=== PATIENT | female | born 1985 | race Caucasian/White ===

== ENCOUNTER 2016-06-15 18:48 | Observation (INO) | payer SELFPAY ==
[~2016-06-15 18:48] MED LIST: ADVAIR; ALBUTEROL; ALBUTEROL SULF8.5 G1 IH; ALBUTEROL17 GM; ALBUTEROL17 GM INH; AMOXICILLIN500 M PO; AMOXICILLIN875 MG PO; ASPIRIN81 MG PO; AUGMENTIN 875-1 EAC2 PO; BYSTOLIC5 MG PO; CLARITIN10 MG; DARVOCET-N 1001 TAB; DOXYCYCLINE HY100 MG PO; GUIATUSS AC SY120 ML PO; IBUPROFEN200 MG; IBUPROFEN800 MG PO; IRON SUPPLEMEN325 MG PO; IRON325 MG PO; K-DUR20 ME1 PO; LASIX20 MG PO; LORTAB 5/500 TA1 TAB PO; MOTRIN800 MG PO; NO HOME MEDICATION XX; NORCO 5-325 TA1 EACH PO; NORCO 5/325 TAB1 TAB PO; NORCO 7.5-3251 EACH PO; PERCOCET 5/3251 TAB PO; PREDNISONE10 MG PO; PRENATAL 1 PLUS1 TAB PO; PRENATAL VITAM1 EAC9 PO; PRENATAL1 EACH PO; PRENATAL1 TAB; SEROQUEL XR200 MG PO; SKELAXIN400 MG PO; TRIPNIP TOP; TYLENOL TA500 MG/TA1 PO; TYLENOL500 MG; VISTARIL50 MG; VITAMIN C; ZITHROMAX250 MG PO; ZOFRAN ODT4 MG PO; ZOFRAN4 MG; ZOFRAN4 MG PO; blood pressure pill
[2016-06-15 22:01] LABS: BASO % 0.3 % (0-2); EOS % 2.9 % (0-7); EOSINOPHIL ABSOLUTE COUNT 0.2 tho/cmm (0.0-0.7); HCT-HEMATOCRIT 37.4 % (34.0-49.0); IMMATURE GRANULOCYTES ABSOLUTE 0.01 tho/cmm (0-0.03); IMMATURE GRANULOCYTES PERCENT 0.1 % (0-0.3); LYMPH % 27.5 % (20-45); MCH (MEAN CORPUSCULAR HGB) 28.6 pg (28.0-32.0); MCHC MEAN CORPUSCULAR HGB CONC 32.1 % (32.0-36.0); MEAN PLATELET VOLUME 9.1 cmc (9.4-12.4); MONO % 9.2 % (0-12); MONOCYTE ABSOLUTE COUNT 0.7 tho/cmm (0.0-1.2); NEUTROPHIL ABSOLUTE COUNT 4.4 tho/cmm (1.6-8.0); NEUTROPHIL-AUTOMATED 4.4 tho/cmm (1.6-8.0); PLATELET COUNT 250 tho/cmm (150-450); RED CELL DISTRIBUTION WIDTH 14.7 % (12.4-16.4); WHITE BLOOD COUNT 7.3 tho/cmm (4.0-10.0)
[2016-06-15 22:05] LABS: INR 0.9 INR (0.9-1.1); PROTHROMBIN TIME 10.6 SECONDS (9.0-13.6)
[2016-06-15 22:16] LABS: PREGNANCY-SERUM NEGATIVE (NEGATIVE)
[2016-06-15 22:18] LABS: ALB/GLOB RATIO 0.7 (0.8-2.0); ALBUMIN 3.3 g/dl (3.5-5.0); ALKALINE PHOSPHATASE 83 U/L (33-138); ALT/SGPT 31 U/L (12-78); ANION GAP 7 mmol/L (0-20); AST/SGOT 33 U/L (10-40); BILIRUBIN,DIRECT <0.1 mg/dl (0.0-0.3); BILIRUBIN,INDIRECT 0.1 mg/dL (0.0-1.0); BILIRUBIN,TOTAL 0.2 mg/dl (0-1.5); BLOOD UREA NITROGEN 13 mg/dl (6-24); C-REACTIVE PROTEIN 0.6 mg/dl (0-0.9); CALCIUM 8.1 mg/dl (8.5-10.5); CARBON DIOXIDE-VENOUS 31 mmol/L (22-32); CHLORIDE 105 mmol/l (96-110); GLUCOSE 99 mg/dL (70-110); POTASSIUM 3.9 mmol/L (3.7-5.1); SODIUM 139 mmol/L (135-145); eGFR VALUE FOR BLACK >90 mL/Min
[2016-06-15 22:21] LABS: ESR-ERYTHROCYTE SED RATE 14 mm/hr (0-20)
[2016-06-15 22:23] LABS: TSH-THYROID STIMULATING HORM. 4.15 uIU/ml (0.40-3.80)
[2016-06-15 22:32] LABS: PROCALCITONIN <0.05 ng/ml (0.05-0.09)
[2016-06-17] MEDS ORDERED: HYDROCODON-ACE1 EA16 PO ×2 (14:41→14:46)
[2016-06-17] MEDS ORDERED: TYLENOL325 M2 PO (14:47)
[2016-06-17] MEDS ORDERED: PREDNISONE10 M1 PO (14:48)
[2016-06-17] MEDS ORDERED: PROTONIX40 M2 PO (14:48)
[2016-06-25] MEDS ORDERED: VENTOLIN HFA18 G2 PO (12:09)
[2016-06-25] MEDS ORDERED: IBUPROFEN200 M2 PO (12:10)
== END 2016-06-17 15:40 ==
LOC: EDMED 18:48 → EMR2 21:52 → CAR1 22:07
PROVIDERS: ADMIT Internal Medicine
DX: R53.1 Weakness (principal); M79.604 Pain in right leg; F17.210 Nicotine dependence, cigarettes, uncomplicated; R20.9 Unspecified disturbances of skin sensation; G43.909 Migraine, unspecified, not intractable, without status migrainosus; F31.9 Bipolar disorder, unspecified; Z85.72 Personal history of non-Hodgkin lymphomas; Z95.2 Presence of prosthetic heart valve; Z98.890 Other specified postprocedural states; D64.9 Anemia, unspecified; Z79.899 Other long term (current) drug therapy
CPT/HCPCS: A9577; G0378; J2930; J7030

== ENCOUNTER 2016-06-25 12:49 | Emergency (ER) | payer SELFPAY ==
[2016-06-25 12:42] LABS: URINE APPEARANCE CLOUDY; URINE BILIRUBIN NEGATIVE (NEG); URINE BLOOD LARGE (NEG); URINE COLOR YELLOW; URINE GLUCOSE (UA) NEGATIVE (NEG); URINE KETONE NEGATIVE (NEG); URINE LEUKOCYTE ESTERASE POSITIVE (NEG); URINE NITRITE POSITIVE (NEG); URINE PROTEIN SMALL (NEG)
[2016-06-25 12:47] LABS: BASO % 0.4 % (0-2); BASO ABSOLUTE COUNT 0.1 tho/cmm (0.0-0.2); EOS % 0.2 % (0-7); HCT-HEMATOCRIT 41.2 % (34.0-49.0); HGB-HEMOGLOBIN 13.1 gm/dl (12.0-15.5); LYMPH % 8.5 % (20-45); MCH (MEAN CORPUSCULAR HGB) 28.9 pg (28.0-32.0); MCHC MEAN CORPUSCULAR HGB CONC 31.8 % (32.0-36.0); MCV (MEAN CELL VOLUME) 90.7 fl (82.0-96.0); MEAN PLATELET VOLUME 9.7 cmc (9.4-12.4); MONO % 8.8 % (0-12); MONOCYTE ABSOLUTE COUNT 1.1 tho/cmm (0.0-1.2); NEUTROPHILS % 82.1 % (40-80); PLATELET COUNT 266 tho/cmm (150-450); RED BLOOD COUNT 4.54 mil/cmm (4.00-5.20); WHITE BLOOD COUNT 12.2 tho/cmm (4.0-10.0)
[~2016-06-25 12:49] MED LIST changes: +HYDROCODON-ACE1 EA16 PO; +IBUPROFEN200 M2 PO; +PREDNISONE10 M1 PO; +PROTONIX40 M2 PO; +TYLENOL325 M2 PO; +VENTOLIN HFA18 G2 PO
[2016-06-25 12:51] LABS: URINE WBC 40-50 /[HPF] (0-5)
[2016-06-25 12:52] LABS: URINE BACTERIA 4+
[2016-06-25 13:00] LABS: ALB/GLOB RATIO 0.8 (0.8-2.0); ALBUMIN 3.6 g/dl (3.5-5.0); ALCOHOL (ETOH) <10 mg/dl (<10); ALKALINE PHOSPHATASE 93 U/L (33-138); ALT/SGPT 27 U/L (12-78); ANION GAP 12 mmol/L (0-20); AST/SGOT 72 U/L (10-40); BILIRUBIN,TOTAL 0.2 mg/dl (0-1.5); BLOOD UREA NITROGEN 14 mg/dl (6-24); CALCIUM 8.3 mg/dl (8.5-10.5); CARBON DIOXIDE-VENOUS 27 mmol/L (22-32); CHLORIDE 106 mmol/l (96-110); GLUCOSE 167 mg/dL (70-110); POTASSIUM 4.7 mmol/L (3.7-5.1); SODIUM 140 mmol/L (135-145); eGFR VALUE FOR BLACK 69 mL/Min
[2016-06-25 13:15] LABS: PREGNANCY-SERUM NEGATIVE (NEGATIVE)
[2016-06-25 13:16] LABS: C-REACTIVE PROTEIN <0.3 mg/dl (0-0.9)
[2016-06-25 13:35] LABS: ESR-ERYTHROCYTE SED RATE 2 mm/hr (0-20)
[2016-06-25] MEDS ORDERED: ZYRTEC10 M7 PO (14:45)
[2016-06-25] MEDS ORDERED: PREDNISONE50 M1 PO (14:45)
[2016-06-25] MEDS ORDERED: NORCO 5-325 TA1 EACH PO (15:05)
== END 2016-06-25 15:16 ==
LOC: EDMED 12:49
PROVIDERS: Emergency Medicine
DX: R21 Rash and other nonspecific skin eruption (principal); R11.10 Vomiting, unspecified; R19.7 Diarrhea, unspecified; R53.1 Weakness; R20.0 Anesthesia of skin; F31.9 Bipolar disorder, unspecified; Z98.890 Other specified postprocedural states; F17.200 Nicotine dependence, unspecified, uncomplicated
CPT/HCPCS: G0480; J1200; J2930